=== PATIENT | female | born 1985 | race Caucasian/White ===

== ENCOUNTER 2022-09-13 20:38 | Emergency (ER) | payer OTHER ==
[~2022-09-13] VITALS: Ht 152.4 cm; Wt 56.8 kg
[2022-09-13 21:24] VITALS: BP 139/82
[2022-09-13] MEDS ORDERED: IBUP-2071 PO (21:43)
[2022-09-13] MEDS ORDERED: OFLO5DRO21 AS (21:43)
== END 2022-09-13 21:54 | disposition home or self-care (01) ==
LOC: EMS 20:45
DX: H60.92 Unspecified otitis externa, left ear (principal); Z88.5 Allergy status to narcotic agent; Z88.6 Allergy status to analgesic agent; Z88.8 Allergy status to other drugs, medicaments and biological substances
CPT/HCPCS: 99283; Z7502